=== PATIENT | male | born 1985 | race Two or more races ===

== ENCOUNTER 2023-02-24 09:37 | Emergency (ER) | payer SELFPAY ==
[2023-02-24] MEDS ORDERED: Sodium Chloride 0.9% 10 ML Syringe FLUSH PRN (10:19)
[2023-02-24 10:27] LABS: BASOPHILS PERCENT AUTO 0.8 % (0.0-1.0); EOSINOPHILS ABSOLUTE AUTO 0.2 K/mm3 (0.0-0.4); EOSINOPHILS PERCENT AUTO 3.8 % (0.0-6.0); HEMATOCRIT 46.8 % (42.0-52.0); HEMOGLOBIN 16.2 gm/dl (14.0-18.0); IMMATURE GRAN ABSOLUTE AUTO 0.02 K/mm3 (0.00-0.05); IMMATURE GRAN PERCENT AUTO 0.4 % (0.0-0.4); LYMPHOCYTES PERCENT AUTO 20.1 % (24.0-44.0); MEAN CORPUSCULAR HEMOGLOBIN 32.4 pg (28.0-32.0); MEAN CORPUSCULAR HGB CONC 34.6 g/dl (32.0-36.0); MEAN CORPUSCULAR VOLUME 93.6 fl (83.0-99.0); MEAN PLATELET VOLUME 9.4 fl (9.4-12.4); MONOCYTES ABSOLUTE AUTO 0.3 K/mm3 (0.0-0.8); MONOCYTES PERCENT AUTO 6.1 % (0.0-8.0); NEUTROPHILS ABSOLUTE AUTO 3.2 K/mm3 (1.8-7.7); NEUTROPHILS PERCENT AUTO 68.8 % (41.0-71.0); PLATELET COUNT,PLT 197 K/mm3 (150-400); WHITE BLOOD CELL COUNT,WBC 4.72 K/mm3 (3.9-11.3)
[2023-02-24 10:36] LABS: INR 0.97; PROTHROMBIN TIME 10.4 SECONDS (9.7-12.0)
[2023-02-24 10:40] LABS: A/G RATIO 0.9 (1-2); ALANINE AMINOTRANSFERASE,ALT 284 U/L (16-63); ALBUMIN 3.9 g/dl (3.4-5.0); ALKALINE PHOSPHATASE 79 U/L (46-116); ANION GAP 17.5 (5-15); ASPARTATE AMNIOTRANSFERASE,AST 232 U/L (15-37); BILIRUBIN TOTAL 1.1 mg/dL (0.2-1.0); BLOOD UREA NITROGEN,BUN 11 mg/dL (7-18); C-REACTIVE PROTEIN <0.2 mg/dL (<1.0); CALCIUM 9.6 mg/dL (8.5-10.1); CARBON DIOXIDE,CO2 23 mEq/L (21-32); CHLORIDE,CL 103 mEq/L (98-107); EST CRCL DRUG DOSING (CG) 95.95 mL/min; ESTIMATED GFR 98 mL/min (>60); GAMMA GLUTAMYL TRANSFERASE,GGT 700 U/L (15-85); GLUCOSE RANDOM 163 mg/dL (70-99); MAGNESIUM 1.8 mg/dL (1.8-2.4); POTASSIUM,K 3.5 mEq/L (3.5-5.1); PROTEIN TOTAL,TP 8.4 g/dl (6.4-8.2); SODIUM,NA 140 mEq/L (136-145); TROPONIN I HIGH SENSITIVITY 5 pg/mL (<=76)
[2023-02-24 10:45] LABS: D-DIMER QUANTITATIVE 0.82 mg/L (0.19-0.50)
[2023-02-24] MEDS ORDERED: Alum Hydrox/Mag Hydrox/Simeth 30 ML, Lidocaine 2% 15 ML PO ONE ×2 (11:15)
[2023-02-24] MEDS ORDERED: Sodium Chloride 0.9% 1,000 ML IV STA (11:15)
[2023-02-24] MEDS ORDERED: Ondansetron 4 MG/2 ML SDV IVPUSH ONE (11:15)
[2023-02-24] MEDS ORDERED: Famotidine 20 MG/2 ML SDV IVPUSH ONE (11:18)
[2023-02-24] MEDS ORDERED: Iopamidol 755 Mg/ML 100 ML Bottle IVPUSH ONE (11:23)
[2023-02-24] MEDS ORDERED: Sodium Chloride 0.9% 100 ML IV SCH (11:30)
[2023-02-24] MEDS ORDERED: Sucralfate Suspension 1 GM/10 ML Cup PO ONE (13:19)
== END 2023-02-24 13:40 | disposition home or self-care (01) ==
LOC: JD.ED 09:37
DX: K21.9 Gastro-esophageal reflux disease without esophagitis (principal); F10.10 Alcohol abuse, uncomplicated; F17.210 Nicotine dependence, cigarettes, uncomplicated; Z88.0 Allergy status to penicillin
CPT/HCPCS: 36415; 71045; 71275; 80053; 82977; 83735; 84484; 85025; 85379; 85610; 85730; 86140; 93005; 96361; 96374; 96375; 99285; A9270; J2405; J3490; J7030; Q9967; 93010; 99284

== ENCOUNTER 2023-07-06 13:17 | Emergency (ER) | payer SELFPAY ==
[2023-07-06] MEDS: Lactated Ringers 1,000 ML IV ONE (14:32)
[2023-07-06 15:00] LABS: A/G RATIO 0.9 (1-2); ANION GAP 14.3 (5-15); BILIRUBIN TOTAL 0.6 mg/dL (0.2-1.0); BUN/CREATININE RATIO 7.5 (14-18); CALCIUM 9.6 mg/dL (8.5-10.1); CREATININE 0.8 mg/dL (0.7-1.3); EST CRCL DRUG DOSING (CG) 119.94 mL/min; MAGNESIUM 1.9 mg/dL (1.8-2.4); POTASSIUM,K 4.3 mEq/L (3.5-5.1); PROTEIN TOTAL,TP 8.5 g/dl (6.4-8.2)
[2023-07-06 15:52] LABS: BARBITURATE SCREEN,URINE NEGATIVE (CUTOFF=200); BENZODIAZEPINES SCREEN,URINE NEGATIVE (CUTOFF=150); BUPRENORPHINE SCREEN,URINE NEGATIVE (CUTOFF=10); METHADONE SCREEN, URINE NEGATIVE (CUT0FF=200); METHAMPHETAMINES SCREEN, URINE NEGATIVE (CUTOFF=500); OXYCODONE SCREEN,URINE NEGATIVE (CUT0FF=100); THC SCREEN,URINE 20 NG/ML NEGATIVE (CUTOFF=50)
[2023-07-06 15:55] LABS: AMPHETAMINES SCREEN, URINE NEGATIVE (CUTOFF=500)
== END 2023-07-06 15:51 | disposition home or self-care (01) ==
LOC: JD.ED 13:17
DX: F10.20 Alcohol dependence, uncomplicated (principal); F19.10 Other psychoactive substance abuse, uncomplicated; Z88.0 Allergy status to penicillin; Z79.899 Other long term (current) drug therapy; Y90.9 Presence of alcohol in blood, level not specified
CPT/HCPCS: 36415; 80053; 80306; 83735; 96360; 99283-25; J7120

== ENCOUNTER 2023-10-30 03:41 | Emergency (ER) | payer SELFPAY ==
[2023-10-30] MEDS: Acetaminophen 325 MG Tab PO ONE ×2 (04:29→09:05)
[2023-10-30] MEDS: Sodium Chloride 0.9% 10 ML Syringe FLUSH ONE (04:55)
[2023-10-30] MEDS: Iopamidol 612 MG/ML 100 ML Bottle IVPUSH ONE (04:55)
[2023-10-30] MEDS: Iopamidol 612 MG/ML 30 ML SDV IVPUSH ONE (04:55)
[2023-10-30] MEDS: Diphtheria,Pertussis(Acell),Tetanus Vaccine 0.5 ML Syringe IM ONE (09:07)
== END 2023-10-30 09:46 | disposition home or self-care (01) ==
LOC: JD.ED 03:41
DX: S02.31XA Fracture of orbital floor, right side, initial encounter for closed fracture (principal); S02.2XXA Fracture of nasal bones, initial encounter for closed fracture; S01.81XA Laceration without foreign body of other part of head, initial encounter; Z23 Encounter for immunization; Z86.16 Personal history of COVID-19; Z88.0 Allergy status to penicillin; W50.1XXA Accidental kick by another person, initial encounter
CPT/HCPCS: 12013; 70450; 70486; 70491; 90471; 90715; 99284; A9270; J3490; Q9967

== ENCOUNTER 2024-12-23 14:50 | Emergency (ER) | payer SELFPAY | END 2024-12-23 15:35 | disposition home or self-care (01) | LOC: JD.ED 14:50 | DX: M10.9 Gout, unspecified (principal); F17.200 Nicotine dependence, unspecified, uncomplicated; Z86.16 Personal history of COVID-19; Z88.0 Allergy status to penicillin; Z79.899 Other long term (current) drug therapy | CPT/HCPCS: 99283; A9270; J7512 ==